=== PATIENT | female | born 1970 | race Caucasian/White ===

== ENCOUNTER 2017-09-21 10:01 | Emergency (ER) | payer MEDICAID ==
[2017-09-21] MEDS ORDERED: Ondansetron 4 MG/2 ML SDV IVPUSH ONE (10:18)
[2017-09-21] MEDS ORDERED: Sodium Chloride 0.9% 10 ML Syringe FLUSH PRN (10:18)
[2017-09-21] MEDS ORDERED: Sodium Chloride 0.9% 1,000 ML IV ONE (10:18)
[2017-09-21] MEDS ORDERED: Ketorolac 30 MG/ML SDV IVPUSH ONE (10:19)
[2017-09-21 11:22] LABS: CHLORIDE,CL 106 mmol/L (98-107); SODIUM,NA 138 mmol/L (136-145)
[2017-09-21] MEDS ORDERED: Morphine 4 MG/ML Syringe IVPUSH ONE (11:29)
[2017-09-21] MEDS ORDERED: Iopamidol 612 MG/ML 100 ML Bottle IVPUSH ONE (11:32)
--- NOTE | 2017-09-21 12:55 | EDM.PDOC ---
ED HPI GENERAL MEDICAL PROBLEM - General Chief Complaint: Gastrointestinal Problem Stated Complaint: ABDOMINAL PAIN/ELEVATD BLOOD PRESSURE Time Seen by Provider: 09/21/17 10:05 Source of Information: Reports: Patient, Provider History Limitations: Reports: No Limitations - History of Present Illness INITIAL COMMENTS - FREE TEXT/NARRATIVE: Pt. presents to ER with eigastric pain that radiates into L shoulder area. She states that the discomfort started at 5:30 this AM. She denies any fever or chills. No substernal chest pain or shortness of breath. Pt. denies any history of gallbladder disease or problems with epigastic pain in the past. She states that she has not eaten today. The last time she ate was last night when she had deep fried cheese curds. She denies any naveen colored stool or dark urine. Onset Date: 09/21/17 Onset Time: 05:30 Location: Reports: Abdomen Quality: Reports: Ache, Burning, Sharp, Stabbing, Throbbing Severity: Severe Middle Epigastric Pain Score (Numeric/FACES): 7 - Related Data Allergies Allergy/AdvReac Type Severity Reaction Status Date / Time No Known Allergies Allergy Verified 09/21/17 10:20 Home Meds: Home Meds Amitriptyline [Elavil] 50 mg PO BEDTIME 07/05/13 [History] QUEtiapine [SEROquel] 200 mg PO BEDTIME 07/05/13 [History] QUEtiapine [SEROquel] 600 mg PO DAILY 07/05/13 [History] buPROPion HCl [Wellbutrin Sr] 150 mg PO BID 07/05/13 [History] PARoxetine HCl [Paxil] 40 mg PO DAILY 12/12/15 [History] Albuterol Sulfate [Proair Hfa] 8.5 gm IH Q6H PRN 09/21/17 [History] Fluticasone Propionate [Flonase] 16 gm NS DAILY 09/21/17 [History] Norethindrone-E.estradiol-Iron [Junel Fe 1 MG-20 MCG] 1 each PO DAILY 09/21/17 [ History] Omeprazole Magnesium [Prilosec Otc] 20 mg PO DAILY 09/21/17 [History] Phentermine HCl [Adipex-P] 37.5 mg PO DAILY 09/21/17 [History] SUMAtriptan [Imitrex] 50 mg PO ASDIRECTED PRN 09/21/17 [History] Topiramate [Topamax] 100 mg PO BID 09/21/17 [History] risperiDONE [Risperdal] 2 mg PO ASDIRECTED 09/21/17 [History] traZODone HCl [Trazodone HCl] 50 - 100 mg PO BEDTIME 09/21/17 [History] Past Medical History HEENT History: Reports: Other (See Below) Other HEENT History: dental surgery Psychiatric History: Reports: Addiction, Anxiety, Bipolar, Depression, PTSD, Other (See Below) Other Psychiatric History: personality disorder, opioid abuse history - Past Surgical History HEENT Surgical History: Reports: Oral Surgery Social & Family History - Tobacco Use Smoking Status *Q: Current Every Day Smoker Years of Tobacco use: 20 Packs/Tins Daily: 0.5 ED ROS GENERAL - Review of Systems Review Of Systems: See Below Constitutional: Reports: No Symptoms HEENT: Reports: No Symptoms Respiratory: Reports: No Symptoms Cardiovascular: Reports: No Symptoms Endocrine: Reports: No Symptoms GI/Abdominal: Reports: Abdominal Pain (radiating into upper back) : Reports: No Symptoms Musculoskeletal: Reports: No Symptoms Skin: Reports: No Symptoms Neurological: Reports: No Symptoms Psychiatric: Reports: No Symptoms Hematologic/Lymphatic: Reports: No Symptoms Immunologic: Reports: No Symptoms ED EXAM, GENERAL - Physical Exam Exam: See Below Exam Limited By: No Limitations General Appearance: Alert, WD/WN, No Apparent Distress Eye Exam: Bilateral Eye: EOMI, Normal Fundi, Normal Inspection, PERRL Ears: Normal External Exam, Normal Canal, Hearing Grossly Normal, Normal TMs Ear Exam: Bilateral Ear: Auricle Normal, Canal Normal, TM normal Nose: Normal Inspection, Normal Mucosa, No Blood Throat/Mouth: Normal Inspection, Normal Lips, Normal Teeth, Normal Gums, Normal Oropharynx, Normal Voice, No Airway Compromise Head: Atraumatic, Normocephalic Neck: Normal Inspection, Supple, Non-Tender, Full Range of Motion Respiratory/Chest: No Respiratory Distress, Lungs Clear, Normal Breath Sounds, No Accessory Muscle Use, Chest Non-Tender Cardiovascular: Normal Peripheral Pulses, Regular Rate, Rhythm, No Edema, No Gallop, No JVD, No Murmur, No Rub GI/Abdominal: Soft, Guarding, Tender. No: Rebound, Hepatomegaly, Splenomegaly (Female) Exam: Deferred Rectal (Female) Exam: Deferred Back Exam: Normal Inspection, Full Range of Motion, Other (upper back pain) Extremities: Normal Inspection, Normal Range of Motion, Non-Tender, Normal Capillary Refill, No Pedal Edema Neurological: Alert, Oriented, CN II-XII Intact, Normal Cognition, Normal Gait, Normal Reflexes, No Motor/Sensory Deficits Psychiatric: Normal Affect, Normal Mood Skin Exam: Warm, Dry, Intact, Normal Color, No Rash Lymphatic: No Adenopathy Course - Vital Signs Last Recorded V/S: Last Vital Signs Temp 36.3 C 09/21/17 10:05 Pulse 90 09/21/17 10:05 Resp 20 09/21/17 10:05 BP 165/84 H 09/21/17 10:05 Pulse Ox 95 09/21/17 10:05 - Orders/Labs/Meds Orders: Active Orders 24 hr Category Date Time Status EKG Documentation Completion [RC] STAT Care 09/21/17 10:17 Active Chest Abdomen Pelvis w Cont [CT] Stat Exams 09/21/17 10:20 Taken HCG URINE, POC [POC] Stat Lab 09/21/17 11:06 Ordered UA W/MICROSCOPIC [URIN] Stat Lab 09/21/17 11:06 Ordered Sodium Chloride 0.9% [Saline Flush] Med 09/21/17 10:18 Active 10 ml FLUSH ASDIRECTED PRN Peripheral IV Insertion Adult [OM.PC] Routine Oth 09/21/17 10:18 Ordered Medication Orders Sodium Chloride (Saline Flush) 10 ml FLUSH ASDIRECTED PRN PRN Reason: Keep Vein Open Labs: Laboratory Tests 09/21/17 09/21/17 09/21/17 Range/Units 10:52 10:52 10:52 WBC 11.5 H (4.0-10.0) x10^3/uL RBC 3.68 L (4.00-5.50) x10^6/uL Hgb 12.5 (12.0-16.0) g/dL Hct 35.2 (33.0-47.0) % MCV 95.7 H D (78.0-93.0) fL MCH 34.0 H (26.0-32.0) pg MCHC 35.5 (32.0-36.0) g/dL RDW Coeff of Flori 13.2 (10.0-15.0) % Plt Count 116 L D (130-400) x10^3/uL Neut % (Auto) 73.5 (50.0-80.0) % Lymph % (Auto) 20.1 L (25.0-50.0) % [place] % (Auto) 3.9 (2.0-11.0) % Eos % (Auto) 2.3 (0.0-4.0) % Baso % (Auto) 0.2 (0.2-1.2) % PT 9.3 L (9.6-11.4) SEC INR 0.9 L (2.0-3.5) Sodium 138 (136-145) mmol/L Potassium 3.1 L (3.5-5.1) mmol/L Chloride 106 (98-107) mmol/L Carbon Dioxide 22 (21-32) mmol/L Anion Gap 13.1 (10-20) mmol/L BUN 7 (7-18) mg/dL Creatinine 0.7 (0.55-1.02) mg/dL Est Cr Clr Drug Dosing 95.58 mL/min Estimated GFR (MDRD) > 60 Glucose 95 (74-106) mg/dL Calcium 8.2 L (8.5-10.1) mg/dL Corrected Calcium 9.24 (8.5-10.1) mg/dL Total Bilirubin 0.3 (0.2-1.0) mg/dL AST 13 L (15-37) U/L ALT 13 L (14-59) U/L Alkaline Phosphatase 88 (46-116) U/L Troponin I < 0.017 (<=0.056) ng/mL C-Reactive Protein 3.9 H (<=0.9) mg/dL Total Protein 6.5 (6.4-8.2) g/dL Albumin 2.7 L (3.4-5.0) g/dL Globulin 3.8 Albumin/Globulin Ratio 0.71 Amylase (25-115) U/L Lipase (73-393) U/L Urine Color (YELLOW) Urine Appearance (CLEAR) Urine pH (5.0-8.0) Ur Specific [place] Urine Protein (NEGATIVE) mg/dL Urine Glucose (UA) (NEGATIVE) mg/dL Urine Ketones (NEGATIVE) mg/dL Urine Occult Blood (NEGATIVE) Urine Nitrite (NEGATIVE) Urine Bilirubin (NEGATIVE) Urine Urobilinogen (0.2) EU/dL Ur Leukocyte Esterase (NEGATIVE) Urine RBC (NOT SEEN) /HPF Urine WBC (NOT SEEN) /HPF Ur Squamous Epith Cells (NEGATIVE) /HPF Urine Bacteria (NEGATIVE) /HPF Urine Mucus (NEGATIVE) /LPF POC Urine HCG, Qual 09/21/17 09/21/17 09/21/17 Range/Units 10:52 11:06 11:06 WBC (4.0-10.0) x10^3/uL RBC (4.00-5.50) x10^6/uL Hgb (12.0-16.0) g/dL Hct (33.0-47.0) % MCV (78.0-93.0) fL MCH (26.0-32.0) pg MCHC (32.0-36.0) g/dL RDW Coeff of Flori (10.0-15.0) % Plt Count (130-400) x10^3/uL Neut % (Auto) (50.0-80.0) % Lymph % (Auto) (25.0-50.0) % [place] % (Auto) (2.0-11.0) % Eos % (Auto) (0.0-4.0) % Baso % (Auto) (0.2-1.2) % PT (9.6-11.4) SEC INR (2.0-3.5) Sodium (136-145) mmol/L Potassium (3.5-5.1) mmol/L Chloride (98-107) mmol/L Carbon Dioxide (21-32) mmol/L Anion Gap (10-20) mmol/L BUN (7-18) mg/dL Creatinine (0.55-1.02) mg/dL Est Cr Clr Drug Dosing mL/min Estimated GFR (MDRD) Glucose (74-106) mg/dL Calcium (8.5-10.1) mg/dL Corrected Calcium (8.5-10.1) mg/dL Total Bilirubin (0.2-1.0) mg/dL AST (15-37) U/L ALT (14-59) U/L Alkaline Phosphatase (46-116) U/L Troponin I (<=0.056) ng/mL C-Reactive Protein (<=0.9) mg/dL Total Protein (6.4-8.2) g/dL Albumin (3.4-5.0) g/dL Globulin Albumin/Globulin Ratio Amylase 90 (25-115) U/L Lipase 81 (73-393) U/L Urine Color Dark yellow H (YELLOW) Urine Appearance Slightly cloudy H (CLEAR) Urine pH 6.0 (5.0-8.0) Ur Specific [place] >=1.030 Urine Protein Negative (NEGATIVE) mg/dL Urine Glucose (UA) Negative (NEGATIVE) mg/dL Urine Ketones Negative (NEGATIVE) mg/dL Urine Occult Blood Trace-intact H (NEGATIVE) Urine Nitrite Negative (NEGATIVE) Urine Bilirubin Negative (NEGATIVE) Urine Urobilinogen 0.2 (0.2) EU/dL Ur Leukocyte Esterase Negative (NEGATIVE) Urine RBC 5-10 H (NOT SEEN) /HPF Urine WBC 5-10 H (NOT SEEN) /HPF Ur Squamous Epith Cells Moderate H (NEGATIVE) /HPF Urine Bacteria Few H (NEGATIVE) /HPF Urine Mucus Many H (NEGATIVE) /LPF POC Urine HCG, Qual Negative Meds: Medications Generic Name Dose Route Start Last Admin Trade Name Freq PRN Reason Stop Dose Admin Sodium Chloride 10 ml 09/21/17 10:18 Saline Flush FLUSH ASDIRECTED PRN Keep Vein Open Discontinued Medications Generic Name Dose Route Start Last Admin Trade Name Freq PRN Reason Stop Dose Admin Sodium Chloride 1,000 mls @ 1,000 mls/hr 09/21/17 10:18 09/21/17 11:00 Normal Saline IV 09/21/17 11:17 1,000 mls/hr .BOLUS ONE Administration Iopamidol 100 ml 09/21/17 11:32 09/21/17 11:58 Isovue-300 (61%) IVPUSH 09/21/17 11:33 100 ml ONETIME ONE Administration Ketorolac Tromethamine 30 mg 09/21/17 10:19 09/21/17 11:01 Toradol IVPUSH 09/21/17 10:20 30 mg ONETIME ONE Administration Morphine Sulfate 4 mg 09/21/17 11:29 09/21/17 11:55 Morphine IVPUSH 09/21/17 11:30 4 mg ONETIME ONE Administration Ondansetron HCl 4 mg 09/21/17 10:18 09/21/17 11:00 Zofran IVPUSH 09/21/17 10:19 4 mg ONETIME ONE Administration - Radiology Interpretation Free Text/Narrative:: CT chest abdomen and pelvis obtained and showed acute cholecystitis with no free fluid surrounding the gallbladder. Departure - Departure Time of Disposition: 13:01 Disposition: Home, Self-Care 01 Clinical Impression: Cholelithiasis without obstruction - Discharge Information Instructions: Gallbladder Eating Plan, Cholecystitis, [id number] Referrals: PCP,None [Primary Care Provider] - Forms: ED Department Discharge Additional Instructions: Ibuprofen 600mg every 6 hours. Zofran 4mg every 8 hours as needed for nausea. Follow the diet guidelines I gave you. John will let you know about your appointment with Dr. Garcia. - My Orders Last 24 Hours: My Active Orders 09/21/17 10:17 EKG Documentation Completion [RC] STAT 09/21/17 10:18 Sodium Chloride 0.9% [Saline Flush] 10 ml FLUSH ASDIRECTED PRN Peripheral IV Insertion Adult [OM.PC] Routine 09/21/17 10:20 Chest Abdomen Pelvis w Cont [CT] Stat 09/21/17 11:06 HCG URINE, POC [POC] Stat UA W/MICROSCOPIC [URIN] Stat - Assessment/Plan Last 24 Hours: My Active Orders 09/21/17 10:17 EKG Documentation Completion [RC] STAT 09/21/17 10:18 Sodium Chloride 0.9% [Saline Flush] 10 ml FLUSH ASDIRECTED PRN Peripheral IV Insertion Adult [OM.PC] Routine 09/21/17 10:20 Chest Abdomen Pelvis w Cont [CT] Stat 09/21/17 11:06 HCG URINE, POC [POC] Stat UA W/MICROSCOPIC [URIN] Stat
== END 2017-09-21 13:00 | disposition home or self-care (01) ==
LOC: VM.ED 10:01
DX: K80.20 Calculus of gallbladder without cholecystitis without obstruction (principal); F17.210 Nicotine dependence, cigarettes, uncomplicated; Z79.899 Other long term (current) drug therapy
CPT/HCPCS: 36415; 71260; 74177; 80053; 81001; 81025; 82150; 83690; 84484; 85025; 85610; 86140; 93005; 96361; 96374; 96375; 99284; J1885; J2270; J2405; J7030; Q9967

== ENCOUNTER 2018-07-29 23:30 | Emergency (ER) | payer MEDICAID ==
--- NOTE | 2018-07-29 23:48 | EDM.PDOCBH ---
ED HPI GENERAL MEDICAL PROBLEM - General Chief Complaint: Behavioral/Psych Stated Complaint: Manic episode Time Seen by Provider: 07/29/18 23:41 Source of Information: Reports: Patient, Old Records, RN, RN Notes Reviewed History Limitations: Reports: No Limitations - History of Present Illness INITIAL COMMENTS - FREE TEXT/NARRATIVE: Patient presents to the ED at [facility] stating she ran out of her psych meds and she feels like she is starting to have a manic episode. Patient has a long standing history of mental disorders. She takes a very large amount of Seroquel. She has not picked up her meds from the pharmacy for one week. She does not feel suicidal or homicidal. She is requesting an injection of thorazine. She states the Thorazine helps her when she feel manic. She has some anxiety just knowing she does not have her Seroquel. She does not feel depressed. Onset Date: 07/27/18 - Related Data Allergies Allergy/AdvReac Type Severity Reaction Status Date / Time No Known Allergies Allergy Verified 07/29/18 23:41 Home Meds: Home Meds Amitriptyline [Elavil] 50 mg PO BEDTIME 07/05/13 [History] QUEtiapine [SEROquel] 200 mg PO BEDTIME 07/05/13 [History] QUEtiapine [SEROquel] 600 mg PO DAILY 07/05/13 [History] buPROPion HCl [Wellbutrin Sr] 150 mg PO BID 07/05/13 [History] PARoxetine HCl [Paxil] 40 mg PO DAILY 12/12/15 [History] Albuterol Sulfate [Proair Hfa] 8.5 gm IH Q6H PRN 09/21/17 [History] Fluticasone Propionate [Flonase] 16 gm NS DAILY 09/21/17 [History] Norethindrone-E.estradiol-Iron [Junel Fe 1 MG-20 MCG] 1 each PO DAILY 09/21/17 [ History] Omeprazole Magnesium [Prilosec Otc] 20 mg PO DAILY 09/21/17 [History] Phentermine HCl [Adipex-P] 37.5 mg PO DAILY 09/21/17 [History] SUMAtriptan [Imitrex] 50 mg PO ASDIRECTED PRN 09/21/17 [History] Topiramate [Topamax] 100 mg PO BID 09/21/17 [History] risperiDONE [Risperdal] 2 mg PO ASDIRECTED 09/21/17 [History] traZODone HCl [Trazodone HCl] 50 - 100 mg PO BEDTIME 09/21/17 [History] Past Medical History HEENT History: Reports: Other (See Below) Other HEENT History: dental surgery Psychiatric History: Reports: Addiction, Anxiety, Bipolar, Depression, PTSD, Other (See Below) Other Psychiatric History: personality disorder, opioid abuse history - Past Surgical History HEENT Surgical History: Reports: Oral Surgery ED ROS GENERAL - Review of Systems Review Of Systems: See Below Constitutional: Denies: Fever, Chills Respiratory: Denies: Shortness of Breath, Cough Cardiovascular: Denies: Chest Pain, Palpitations GI/Abdominal: Denies: Abdominal Pain, Nausea, Vomiting Skin: Reports: No Symptoms Neurological: Reports: No Symptoms Psychiatric: Reports: Agitation, Cravings ED EXAM, BEHAVIORAL HEALTH - Physical Exam Exam: See Below Exam Limited By: No Limitations General Appearance: Alert, No Apparent Distress Respiratory/Chest: No Respiratory Distress, Lungs Clear, Normal Breath Sounds Cardiovascular: Normal Peripheral Pulses, Regular Rate, Rhythm GI/Abdominal: Normal Bowel Sounds, Soft, Non-Tender Neurological: Alert, Oriented x 3 Psychiatric: Restless, Agitated. No: Disoriented, Homicidal Thoughts, Suicidal Plan, Suicidal Thoughts Skin Exam: Warm, Dry, Intact, Normal color COURSE, BEHAVIORAL HEALTH COMP - Course Orders, Labs, Meds: Active Orders 24 hr Category Date Time Status chlorproMAZINE [Thorazine] Med 07/29/18 23:41 Once 50 mg IM ONETIME ONE Medication Orders Chlorpromazine HCl (Thorazine) 50 mg IM ONETIME ONE Stop: 07/29/18 23:42 Medications Generic Name Dose Route Start Last Admin Trade Name Freq PRN Reason Stop Dose Admin Chlorpromazine HCl 50 mg 07/29/18 23:41 Thorazine IM 07/29/18 23:42 ONETIME ONE Departure - Departure Time of Disposition: 23:49 Disposition: Home, Self-Care 01 Condition: Good Clinical Impression: Bipolar I disorder with francia - Discharge Information *PRESCRIPTION DRUG MONITORING PROGRAM REVIEWED*: Not Applicable *COPY OF PRESCRIPTION DRUG MONITORING REPORT IN PATIENT MARINA: Not Applicable Instructions: Francia Referrals: Stefani Reilly NP [Ordering Only Provider] - Forms: ED Department Discharge Additional Instructions: 1. Stay well hydrated and rest 2. See Stefani tomorrow or ERIKA in clinic 3. Call with any questions or concerns - Problem List Review Problem List Initiated/Reviewed/Updated: Yes - My Orders Last 24 Hours: My Active Orders 07/29/18 23:41 chlorproMAZINE [Thorazine] 50 mg IM ONETIME ONE - Assessment/Plan Last 24 Hours: My Active Orders 07/29/18 23:41 chlorproMAZINE [Thorazine] 50 mg IM ONETIME ONE Assessment:: Bipolar Plan: Patient given injection of Thorazine. After time for observation, patient stated she is "feeling much better." Discussed at length the needs to keep on her medications. Discussed the side effects and withdrawal symptoms. Patient verbalized understanding. She states she will see her PCP tomorrow. Patient discharged in stable condition.
== END 2018-07-29 23:59 | disposition home or self-care (01) ==
LOC: VM.ED 23:30
DX: F31.9 Bipolar disorder, unspecified (principal); Z79.899 Other long term (current) drug therapy
CPT/HCPCS: 96372; 99283; 99283-GF; J3230

== ENCOUNTER 2018-08-05 22:19 | Emergency (ER) | payer SELFPAY ==
[2018-08-05] MEDS ORDERED: diphenhydrAMINE 25 MG Cap PO ONE (23:18)
--- NOTE | 2018-08-05 23:26 | EDM.PDOCBH ---
ED HPI GENERAL MEDICAL PROBLEM - General Chief Complaint: Behavioral/Psych Stated Complaint: MANIC EPISODES Time Seen by Provider: 08/05/18 23:17 Source of Information: Reports: Patient History Limitations: Reports: No Limitations - History of Present Illness INITIAL COMMENTS - FREE TEXT/NARRATIVE: Patient reports feeling anxious. Has been off of her psychiatric medications as she is out and cant afford to refill them. Is still taking her seroquel. Is here asking for something to treat her anxiety. Was here last week with similar complaints and was given IM thorazine and is asking for the same. No suicidal ideations. Is also stating she is unable to sleep. No other complaints. Onset: Gradual Location: Reports: Generalized - Related Data Allergies Allergy/AdvReac Type Severity Reaction Status Date / Time No Known Allergies Allergy Verified 07/29/18 23:41 Home Meds: Home Meds Amitriptyline [Elavil] 50 mg PO BEDTIME 07/05/13 [History] QUEtiapine [SEROquel] 200 mg PO BEDTIME 07/05/13 [History] QUEtiapine [SEROquel] 600 mg PO DAILY 07/05/13 [History] buPROPion HCl [Wellbutrin Sr] 150 mg PO BID 07/05/13 [History] PARoxetine HCl [Paxil] 40 mg PO DAILY 12/12/15 [History] Albuterol Sulfate [Proair Hfa] 8.5 gm IH Q6H PRN 09/21/17 [History] Fluticasone Propionate [Flonase] 16 gm NS DAILY 09/21/17 [History] Norethindrone-E.estradiol-Iron [Junel Fe 1 MG-20 MCG] 1 each PO DAILY 09/21/17 [ History] Omeprazole Magnesium [Prilosec Otc] 20 mg PO DAILY 09/21/17 [History] Phentermine HCl [Adipex-P] 37.5 mg PO DAILY 09/21/17 [History] SUMAtriptan [Imitrex] 50 mg PO ASDIRECTED PRN 09/21/17 [History] Topiramate [Topamax] 100 mg PO BID 09/21/17 [History] risperiDONE [Risperdal] 2 mg PO ASDIRECTED 09/21/17 [History] traZODone HCl [Trazodone HCl] 50 - 100 mg PO BEDTIME 09/21/17 [History] Past Medical History HEENT History: Reports: Other (See Below) Other HEENT History: dental surgery Psychiatric History: Reports: Addiction, Anxiety, Bipolar, Depression, PTSD, Other (See Below) Other Psychiatric History: personality disorder, opioid abuse history - Past Surgical History HEENT Surgical History: Reports: Oral Surgery ED ROS GENERAL - Review of Systems Review Of Systems: See Below Constitutional: Reports: No Symptoms HEENT: Reports: No Symptoms Respiratory: Reports: No Symptoms Cardiovascular: Reports: No Symptoms Endocrine: Reports: No Symptoms GI/Abdominal: Reports: No Symptoms : Reports: No Symptoms Musculoskeletal: Reports: No Symptoms Skin: Reports: No Symptoms Neurological: Reports: No Symptoms Psychiatric: Reports: Agitation, Anxiety Hematologic/Lymphatic: Reports: No Symptoms Immunologic: Reports: No Symptoms ED EXAM, BEHAVIORAL HEALTH - Physical Exam Exam: See Below Exam Limited By: No Limitations General Appearance: Alert, WD/WN, Anxious, Mild Distress Eye Exam: Bilateral Eye: EOMI, Normal Inspection Ears: Normal TMs Nose: Normal Inspection, Normal Mucosa, No Blood Throat/Mouth: Normal Inspection, Normal Lips, Normal Teeth, Normal Gums, Normal Oropharynx, Normal Voice, No Airway Compromise Head: Atraumatic, Normocephalic Neck: Normal Inspection, Supple, Non-Tender, Full Range of Motion Respiratory/Chest: No Respiratory Distress, Lungs Clear, Normal Breath Sounds, No Accessory Muscle Use, Chest Non-Tender Cardiovascular: Normal Peripheral Pulses, Regular Rate, Rhythm, No Edema, No Gallop, No JVD, No Murmur, No Rub GI/Abdominal: Normal Bowel Sounds, Soft, Non-Tender, No Organomegaly, No Distention, No Abnormal Bruit, No Mass Neurological: Alert, Normal Mood/Affect, CN II-XII Intact, Normal Cognition, Normal Gait, Normal Reflexes, No Motor/Sensory Deficits, Oriented x 3 Psychiatric: Alert, Agitated Skin Exam: Warm, Dry, Intact, Normal color, No rash COURSE, BEHAVIORAL HEALTH COMP - Course Orders, Labs, Meds: Medications Discontinued Medications Generic Name Dose Route Start Last Admin Trade Name Freq PRN Reason Stop Dose Admin Chlorpromazine HCl 25 mg 08/05/18 23:17 Thorazine IM 08/05/18 23:18 ONETIME ONE Diphenhydramine HCl 25 mg 08/05/18 23:18 Benadryl PO 08/05/18 23:19 ONETIME ONE Departure - Departure Time of Disposition: 00:10 Disposition: Home, Self-Care 01 Condition: Good Clinical Impression: Anxiety, Schizophrenia - Discharge Information *PRESCRIPTION DRUG MONITORING PROGRAM REVIEWED*: Not Applicable *COPY OF PRESCRIPTION DRUG MONITORING REPORT IN PATIENT MARINA: Not Applicable Instructions: Panic Attack, [id number], Living With Anxiety Referrals: Stefani Reilly NP [Primary Care Provider] - Forms: ED Department Discharge Additional Instructions: Plan 1. Make an appointment tomorrow with your primary provider to have your psychiatric medications refilled and followed closely to avoid relapse. 2. If you have any suicidal thoughts please call either the hospital, police, suicide hotline or reach out to friends and family. 3. Please call the ER if you have any questions or concerns. - Problem List & Annotations (1) Anxiety SNOMED Code(s): 15255282 Code(s): F41.9 - ANXIETY DISORDER, UNSPECIFIED Status: Acute Priority: Medium Current Visit: Yes - Problem List Review Problem List Initiated/Reviewed/Updated: Yes - Assessment/Plan Assessment:: anxiety Plan: Plan 1. Make an appointment tomorrow with your primary provider to have your psychiatric medications refilled and followed closely to avoid relapse. 2. If you have any suicidal thoughts please call either the hospital, police, suicide hotline or reach out to friends and family. 3. Please call the ER if you have any questions or concerns.
== END 2018-08-06 00:10 | disposition home or self-care (01) ==
LOC: VM.ED 22:19
DX: F41.9 Anxiety disorder, unspecified (principal); F20.9 Schizophrenia, unspecified; F31.9 Bipolar disorder, unspecified; F43.10 Post-traumatic stress disorder, unspecified; Z79.899 Other long term (current) drug therapy
CPT/HCPCS: 96372; 99283; A9270; J3230; 99284-GF

== ENCOUNTER 2020-05-05 10:31 | Emergency (ER) | payer OTHER, MEDICAID ==
[2020-05-05] MEDS ORDERED: Sodium Chloride 0.9% 10 ML Syringe FLUSH PRN (10:48)
[2020-05-05] MEDS ORDERED: fentaNYL 50 MCG/ML SDV IVPUSH ONE ×3 (10:50→12:03)
[2020-05-05] MEDS ORDERED: Ondansetron 4 MG/2 ML SDV IVPUSH ONE (10:50)
[2020-05-05] MEDS ORDERED: Ondansetron 4 MG/2 ML SDV ONE (10:51)
[2020-05-05] MEDS ORDERED: fentaNYL 50 MCG/ML SDV ONE (10:52)
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
[2020-05-05] MEDS ORDERED: Lidocaine 1% 30 ML SDV INJECT ONE (11:21)
[2020-05-05] MEDS ORDERED: Bupivacaine 0.5% 30 ML SDV INJECT STA (11:21)
[2020-05-05 11:31] LABS: CHLORIDE,CL 103 mmol/L (98-107); SODIUM,NA 141 mmol/L (136-145)
[2020-05-05 11:36] LABS: ANION GAP 19.4 mmol/L (5-15); PTT,PARTIAL THROMBOPLSTIN TIME 24.3 SEC (25.6-32.8)
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
--- NOTE | 2020-05-05 11:55 | CT ---
[id number] CT/CT Cervical Spine WO IV Exam: CT Cervical Spine WO IV CLINICAL DATA: TRAUMA CODE, CERVICAL PAIN. COMPARISON: None. FINDINGS: No fracture or subluxation is seen. The C1-C2 articulation is unremarkable. The prevertebral soft tissues are within normal limits. Multilevel spondylosis most pronounced at C4-C5 and C5-C6. IMPRESSION: NO ACUTE FRACTURE OR SUBLUXATION. Gerardo Castellon DO 05/05/20 1154 Thank you for allowing us to participate in the care of your patient.
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
[2020-05-05] MEDS ORDERED: Diphtheria,Pertussis(Acell),Tetanus Vaccine 0.5 ML Syringe IM ONE (11:59)
[2020-05-05] MEDS ORDERED: Midazolam 1 MG/ML 2 ML SDV IVPUSH ONE (12:03)
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
--- NOTE | 2020-05-05 13:15 | CR ---
[id number] RAD/RAD Forearm Left 2V EXAM: RAD Forearm Left 2V CLINICAL DATA: POST REDUCTION COMPARISON: CORRELATION IS MADE WITH THE EARLIER EXAM FINDINGS: Residual medial and anterior displacement of the distal radial fracture fragment is still seen. IMPRESSION: RESIDUAL DISPLACEMENT OF FRACTURE FRAGMENT Emir Crisostomo MD 05/05/20 1842 Thank you for allowing us to participate in the care of your patient.
[2020-05-05 13:51] LABS: BARBITURATE SCREEN,URINE NEGATIVE (NEGATIVE); BENZODIAZEPINES SCREEN,URINE NEGATIVE (NEGATIVE); EDDP,URINE SCREEN NEGATIVE (NEGATIVE); METHAMPHETAMINE SCREEN, URINE NEGATIVE (NEGATIVE); TCA SCREEN,URINE POSITIVE (NEGATIVE); THC SCREEN,URINE 50 NG/ML POSITIVE (NEGATIVE)
== END 2020-05-05 13:45 | disposition home or self-care (01) ==
LOC: VM.ED 10:31
DX: S52.322A Displaced transverse fracture of shaft of left radius, initial encounter for closed fracture (principal); S40.012A Contusion of left shoulder, initial encounter; Z23 Encounter for immunization; V89.2XXA Person injured in unspecified motor-vehicle accident, traffic, initial encounter
CPT/HCPCS: 29105; 36415; 64450; 71045; 72125; 72170; 73030-LT; 73090-LT; 80053; 80305-QW; 80307; 81001; 81025; 83605; 83690; 84484; 85025; 85610; 85730; 86140; 90471; 90715; 96374; 96375; 96376; 99284; 99284-25; J2001; J2250; J2405; J3010; J3490

== ENCOUNTER 2023-05-14 09:16 | Inpatient (IN) | payer MEDICAID ==
[2023-05-14] MEDS ORDERED: Sodium Chloride 0.9% 10 ML Syringe FLUSH PRN (09:35)
[2023-05-14] MEDS ORDERED: Sodium Chloride 0.9% 1,000 ML IV ONE (09:36)
[2023-05-14] MEDS ORDERED: Ketorolac 15 MG/ML SDV IVPUSH ONE (09:37)
[2023-05-14 09:50] LABS: BASOPHILS PERCENT AUTO 0.1 % (0.2-1.2); EOSINOPHILS PERCENT AUTO 0.3 % (0.0-4.0); HEMATOCRIT 30.7 % (33.0-47.0); IMMATURE GRAN ABSOLUTE AUTO 0.04 x10^3/uL (0.00-0.07); LYMPHOCYTES ABSOLUTE AUTO 1.6 x10^3/uL (1.0-4.8); LYMPHOCYTES PERCENT AUTO 16.2 % (25.0-50.0); MEAN CORPUSCULAR HEMOGLOBIN 30.9 pg (26.0-32.0); MEAN CORPUSCULAR HGB CONC 35.8 g/dL (32.0-36.0); MEAN CORPUSCULAR VOLUME 86.2 fL (78.0-93.0); MONOCYTES ABSOLUTE AUTO 0.9 x10^3/uL (0.0-0.8); MONOCYTES PERCENT AUTO 9.5 % (2.0-11.0); NEUTROPHILS ABSOLUTE AUTO 7.3 x10^3/uL (1.8-7.7); NEUTROPHILS PERCENT AUTO 73.5 % (50.0-80.0); PLATELET COUNT,PLT 241 x10^3/uL (130-400); RED BLOOD CELL COUNT 3.56 x10^6/uL (4.00-5.50); WHITE BLOOD CELL COUNT,WBC 9.9 x10^3/uL (4.0-10.0)
[2023-05-14 09:56] LABS: HCO3 VENOUS,POC 26 mmol/L (22-29); O2 SATURATION VENOUS,POC 64 %; PCO2 VENOUS,POC 40 mmHg (41-51); PH VENOUS,POC 7.42 pH (7.32-7.43); PO2 VENOUS,POC 33 mmHg
[2023-05-14 10:13] LABS: LACTIC ACID 1.7 mmol/L (0.4-2.0)
[2023-05-14 10:15] LABS: A/G RATIO 0.41; ALANINE AMINOTRANSFERASE,ALT 24 U/L (14-59); ALBUMIN 2.2 g/dL (3.4-5.0); ALKALINE PHOSPHATASE 171 U/L (46-116); ASPARTATE AMNIOTRANSFERASE,AST 48 U/L (15-37); BILIRUBIN TOTAL 1.1 mg/dL (0.2-1.0); BLOOD UREA NITROGEN,BUN 14 mg/dL (7-18); CALCIUM 8.6 mg/dL (8.5-10.1); CARBON DIOXIDE,CO2 28 mmol/L (21-32); CHLORIDE,CL 97 mmol/L (98-107); GLUCOSE RANDOM 145 mg/dL (70-99); MAGNESIUM 1.7 mg/dL (1.8-2.4); PROTEIN TOTAL,TP 7.6 g/dL (6.4-8.2); SODIUM,NA 136 mmol/L (136-145)
[2023-05-14 10:16] LABS: ANION GAP 13.8 mmol/L (5-15); ESTIMATED GFR 67 mL/min (>=60); POTASSIUM,K 2.8 mmol/L (3.5-5.1)
[2023-05-14 10:22] LABS: PROTHROMBIN TIME 10.6 SEC (9.5-12.2)
[2023-05-14 10:28] LABS: CORONAVIRUS COVID-19 NAA NEGATIVE (NEGATIVE); INFLUENZA A NAA NEGATIVE (NEGATIVE); INFLUENZA B NAA NEGATIVE (NEGATIVE); RESPIRATORY SYNCYTIAL VIR NAA NEGATIVE (NEGATIVE)
[2023-05-14 10:29] LABS: C-REACTIVE PROTEIN 58.66 mg/dL (<=0.50)
[2023-05-14] MEDS ORDERED: Potassium Chloride Riders 20 MEQ in Premix Bag 1 BAG IV ONE ×3 (10:44→14:30)
[2023-05-14] MEDS ORDERED: Iopamidol 755 Mg/ML 100 ML Bottle IVPUSH ONE (10:55)
[2023-05-14 11:12] LABS: AMPHETAMINES SCREEN, URINE NEGATIVE (NEGATIVE); BARBITURATE SCREEN,URINE NEGATIVE (NEGATIVE); BENZODIAZEPINES SCREEN,URINE NEGATIVE (NEGATIVE); BUPRENORPHINE SCREEN,URINE POSITIVE (NEGATIVE); COCAINE METABOLITES,URINE NEGATIVE (NEGATIVE); METHADONE SCREEN, URINE NEGATIVE (NEGATIVE); METHAMPHETAMINE SCREEN, URINE NEGATIVE (NEGATIVE); OXYCODONE SCREEN,URINE NEGATIVE (NEGATIVE); PCP SCREEN,URINE NEGATIVE (NEGATIVE); THC SCREEN,URINE 50 NG/ML POSITIVE (NEGATIVE)
[2023-05-14 11:17] LABS: BILIRUBIN,URINE MODERATE (NEGATIVE); COLOR,URINE DARK YELLOW (YELLOW); GLUCOSE,URINE NEGATIVE (NEGATIVE); KETONES,URINE NEGATIVE (NEGATIVE); LEUKOCYTE ESTERASE,URINE NEGATIVE (NEGATIVE); NITRITE,URINE NEGATIVE (NEGATIVE); OCCULT BLOOD,URINE MODERATE (NEGATIVE); PROTEIN,URINE 100 mg/dL (NEGATIVE); UROBILINOGEN,URINE >=8.0 EU/dL (0.2)
[2023-05-14 11:18] LABS: APPEARANCE,URINE SLIGHTLY CLOUDY (CLEAR)
[2023-05-14 11:19] LABS: SQUAMOUS EPITHELIAL CELLS,UR FEW /HPF (NOT SEEN); WBC,URINE 0-5 /HPF (NOT SEEN)
[2023-05-14 11:20] LABS: AMORPHOUS SEDIMENT,URINE OCCASIONAL; BACTERIA,URINE RARE /HPF (NOT SEEN); MUCUS,URINE RARE /LPF (NOT SEEN)
[2023-05-14] MEDS ORDERED: cefTRIAXone 2 GM Vial IVPUSH ONE (11:56)
[2023-05-14] MEDS: methylPREDNISolone Sodium Succinate 125 MG/2 ML SDV IV SCH ×2 (12:15→20:57)
[2023-05-14] MEDS ORDERED: Ondansetron 4 MG Tab.DIS PO PRN (12:29)
[2023-05-14] MEDS ORDERED: HYDROmorphone 0.5 MG/0.5 ML Syringe IVPUSH ONE (13:09)
[2023-05-14] MEDS ORDERED: Ketorolac 15 MG/ML SDV IVPUSH SCH (13:15)
[2023-05-14] MEDS: NS + KCl 20mEq/L 1,000 ML IV SCH ×2 (13:19→21:18)
[2023-05-14] MEDS: Albuterol/Ipratropium 3.0-0.5 MG/3 ML Neb Soln NEB SCH ×2 (13:19→18:14)
[2023-05-14] MEDS: Doxycycline Monohydrate 100 MG Cap PO SCH ×2 (13:23→20:57)
[2023-05-14] MEDS ORDERED: hydrOXYzine HCl 25 MG Tab PO PRN (13:36)
[2023-05-14] MEDS ORDERED: Ketorolac 15 MG/ML SDV IVPUSH PRN (13:39)
[2023-05-14] MEDS: BUPRENORPHINE NALOX SL SCH ×2 (14:41→21:00)
[2023-05-14] MEDS: Enoxaparin 40 MG/0.4 ML Syringe SUBCUT SCH (20:57)
[2023-05-14] MEDS: Zolpidem 5 MG Tab PO SCH (20:58)
[2023-05-14] MEDS: QUEtiapine 100 MG Tab PO SCH (20:58)
[2023-05-14] MEDS: ClonazePAM 0.5 MG Tab PO SCH (20:59)
[2023-05-15] MEDS: Albuterol/Ipratropium 3.0-0.5 MG/3 ML Neb Soln NEB SCH ×5 (02:00→18:36)
[2023-05-15] MEDS: NS + KCl 20mEq/L 1,000 ML IV SCH ×3 (05:19→22:28)
[2023-05-15] MEDS: Omeprazole 20 MG Cap.CR PO SCH (06:20)
[2023-05-15 06:47] LABS: HEMATOCRIT 27.2 % (33.0-47.0); HEMOGLOBIN 9.5 g/dL (12.0-16.0); MEAN CORPUSCULAR HEMOGLOBIN 30.5 pg (26.0-32.0); MEAN CORPUSCULAR HGB CONC 34.9 g/dL (32.0-36.0); MEAN CORPUSCULAR VOLUME 87.5 fL (78.0-93.0); RED BLOOD CELL COUNT 3.11 x10^6/uL (4.00-5.50); WHITE BLOOD CELL COUNT,WBC 11.4 x10^3/uL (4.0-10.0)
[2023-05-15] MEDS: methylPREDNISolone Sodium Succinate 125 MG/2 ML SDV IV SCH ×2 (08:07→20:22)
[2023-05-15] MEDS: Propranolol 60 MG Cap.ER PO SCH (08:07)
[2023-05-15] MEDS: ClonazePAM 0.5 MG Tab PO SCH ×2 (08:07→20:23)
[2023-05-15] MEDS: cefTRIAXone 1 GM Vial IVPUSH SCH (08:07)
[2023-05-15] MEDS: lamoTRIgine 100 MG Tab PO SCH (08:08)
[2023-05-15] MEDS: Meloxicam 7.5 MG Tab PO SCH (08:08)
[2023-05-15] MEDS: Doxycycline Monohydrate 100 MG Cap PO SCH ×2 (08:08→20:23)
[2023-05-15] MEDS: PARoxetine 20 MG Tab PO SCH (08:08)
[2023-05-15] MEDS: BUPRENORPHINE NALOX SL SCH ×3 (08:09→20:20)
[2023-05-15 08:53] LABS: CALCIUM 8.5 mg/dL (8.5-10.1); EST CRCL DRUG DOSING (CG) 82.04 mL/min; POTASSIUM,K 3.6 mmol/L (3.5-5.1)
[2023-05-15 09:02] LABS: ANION GAP 14.6 mmol/L (5-15); CREATININE 0.8 mg/dL (0.55-1.02)
[2023-05-15] MEDS: FLUOROMETHOLONE 0.1% EYEBOTH SCH (20:21)
[2023-05-15] MEDS: EYE EYEBOTH SCH (20:21)
[2023-05-15] MEDS: Enoxaparin 40 MG/0.4 ML Syringe SUBCUT SCH (20:22)
[2023-05-15] MEDS: QUEtiapine 100 MG Tab PO SCH (20:22)
[2023-05-15] MEDS: Zolpidem 5 MG Tab PO SCH (20:23)
[2023-05-16] MEDS: Albuterol/Ipratropium 3.0-0.5 MG/3 ML Neb Soln NEB SCH ×5 (02:05→21:38)
[2023-05-16] MEDS: NS + KCl 20mEq/L 1,000 ML IV SCH ×2 (06:19→17:21)
[2023-05-16] MEDS: Omeprazole 20 MG Cap.CR PO SCH (06:31)
[2023-05-16 07:25] LABS: A/G RATIO 0.38; ALBUMIN 1.8 g/dL (3.4-5.0); ANION GAP 16.5 mmol/L (5-15); BILIRUBIN TOTAL 0.2 mg/dL (0.2-1.0); CALCIUM 8.8 mg/dL (8.5-10.1); CREATININE 0.7 mg/dL (0.55-1.02); EST CRCL DRUG DOSING (CG) 93.76 mL/min; MAGNESIUM 1.7 mg/dL (1.8-2.4); POTASSIUM,K 4.5 mmol/L (3.5-5.1); PROTEIN TOTAL,TP 6.5 g/dL (6.4-8.2)
[2023-05-16] MEDS: lamoTRIgine 100 MG Tab PO SCH (08:40)
[2023-05-16] MEDS: Doxycycline Monohydrate 100 MG Cap PO SCH ×2 (08:40→20:21)
[2023-05-16] MEDS: Meloxicam 7.5 MG Tab PO SCH (08:40)
[2023-05-16] MEDS: ClonazePAM 0.5 MG Tab PO SCH ×2 (08:40→20:20)
[2023-05-16] MEDS: Propranolol 60 MG Cap.ER PO SCH (08:40)
[2023-05-16] MEDS: PARoxetine 20 MG Tab PO SCH (08:41)
[2023-05-16] MEDS: BUPRENORPHINE NALOX SL SCH ×3 (08:43→20:22)
[2023-05-16] MEDS: methylPREDNISolone Sodium Succinate 125 MG/2 ML SDV IV SCH ×2 (08:45→20:12)
[2023-05-16] MEDS: cefTRIAXone 1 GM Vial IVPUSH SCH (08:51)
[2023-05-16] MEDS: EYE EYEBOTH SCH ×3 (08:52→20:22)
[2023-05-16] MEDS: FLUOROMETHOLONE 0.1% EYEBOTH SCH ×3 (08:52→20:22)
[2023-05-16] MEDS: QUEtiapine 100 MG Tab PO SCH (20:19)
[2023-05-16] MEDS: Enoxaparin 40 MG/0.4 ML Syringe SUBCUT SCH (20:21)
[2023-05-16] MEDS ORDERED: Furosemide 40 MG/4 ML VIAL ONE (21:43)
[2023-05-16] MEDS ORDERED: LORazepam 2 MG/ML SDV ONE (21:46)
[2023-05-16] MEDS ORDERED: Nitroglycerin/D5W 25 MG/250 ML BOTTLE ONE (22:00)
[2023-05-16] MEDS ORDERED: Nitroglycerin 0.4 MG Tab.SL ONE (22:00)
[2023-05-16] MEDS ORDERED: Sodium Chloride 0.9% 10 ML Syringe FLUSH PRN (22:02)
[2023-05-16] MEDS ORDERED: Nitroglycerin 0.4 MG Tab.SL SL ONE (22:04)
[2023-05-16] MEDS ORDERED: Piperacillin/Tazobactam 4.5 GM in Sodium Chloride 0.9% 100 ML IV ONE (22:04)
[2023-05-16 22:12] LABS: HEMATOCRIT 34.3 % (33.0-47.0); HEMOGLOBIN 11.9 g/dL (12.0-16.0); MEAN CORPUSCULAR HEMOGLOBIN 30.4 pg (26.0-32.0); MEAN CORPUSCULAR HGB CONC 34.7 g/dL (32.0-36.0); MEAN CORPUSCULAR VOLUME 87.5 fL (78.0-93.0); PLATELET COUNT,PLT 464 x10^3/uL (130-400); RED BLOOD CELL COUNT 3.92 x10^6/uL (4.00-5.50)
[2023-05-16 22:13] LABS: WHITE BLOOD CELL COUNT,WBC 28.1 x10^3/uL (4.0-10.0)
[2023-05-16] MEDS ORDERED: Nitroglycerin/D5W 25 MG/250 ML BOTTLE IV SCH (22:15)
[2023-05-16 22:19] LABS: BAND PERCENT MAN 6 % (0-6); HYPERSEGMENTED NEUTROPHILS FEW; HYPOCHROMASIA 1+ SLIGHT; LYMPHOCYTES ABSOLUTE MAN 2.2 x10^3/uL (1.0-4.8); LYMPHOCYTES PERCENT MAN 8 % (25-50); METAMYELOCYTE PERCENT MAN 2 % (0); MONOCYTES ABSOLUTE MAN 0.8 x10^3/uL (0.0-0.8); MONOCYTES PERCENT MAN 3 % (2-11); NEUTROPHILS ABSOLUTE MAN 24.4 x10^3/uL (1.8-7.7); PLATELET COUNT ESTIMATE INCREASED; SEG NEUTROPHILS PERCENT MAN 81 % (50-80)
[2023-05-16 22:32] LABS: A/G RATIO 0.41; ALBUMIN 2.1 g/dL (3.4-5.0); BILIRUBIN TOTAL 0.4 mg/dL (0.2-1.0); C-REACTIVE PROTEIN 7.57 mg/dL (<=0.50); CREATININE 0.9 mg/dL (0.55-1.02); EST CRCL DRUG DOSING (CG) 72.92 mL/min; MAGNESIUM 1.5 mg/dL (1.8-2.4); POTASSIUM,K 4.2 mmol/L (3.5-5.1); PROTEIN TOTAL,TP 7.2 g/dL (6.4-8.2)
[2023-05-16 22:34] LABS: LACTIC ACID 2.5 mmol/L (0.4-2.0)
[2023-05-16 22:35] LABS: BASE EXCESS ARTERIAL,POC -4 mmol/L ((-2)-3); HCO3 ARTERIAL,POC 21.8 mmol/L (21-28); O2 SATURATION ARTERIAL,POC 98.8 % (94-98); PCO2 ARTERIAL,POC 40 mmHg (35-48); PH ARTERIAL,POC 7.34 pH (7.35-7.45); PO2 ARTERIAL,POC 131 mmHg (83-108); TCO2 ARTERIAL,POC 21.5 mmol/L (22-29)
[2023-05-16 22:38] LABS: CALCIUM 8.9 mg/dL (8.5-10.1)
[2023-05-16 22:39] LABS: ANION GAP 20.2 mmol/L (5-15)
[2023-05-16] MEDS ORDERED: VANCOmycin 1.75 GM/350 ML 1.75 GM in Premix Bag 1 BAG IV ONE (23:00)
== END 2023-05-16 23:45 | disposition short-term general hospital (02) | DRG 193 ==
LOC: VM.ED 09:16 → VM.MS 12:11
PROVIDERS: ADMIT Physician Assistant; ATTEND Physician Assistant
PROC: 4A033R1 Measurement of Arterial Saturation, Peripheral, Percutaneous Approach (ICD-10-PCS; principal; 2023-05-14)
DX: J18.9 Pneumonia, unspecified organism (principal); J81.0 Acute pulmonary edema; F31.9 Bipolar disorder, unspecified; F17.210 Nicotine dependence, cigarettes, uncomplicated; E87.6 Hypokalemia; E86.0 Dehydration; S09.90XA Unspecified injury of head, initial encounter; R41.0 Disorientation, unspecified; Z79.899 Other long term (current) drug therapy; Z79.51 Long term (current) use of inhaled steroids; Z98.890 Other specified postprocedural states; Z11.52 Encounter for screening for COVID-19; Z79.01 Long term (current) use of anticoagulants; W19.XXXA Unspecified fall, initial encounter
CPT/HCPCS: 0241U; 36415; 36600; 51702; 70450; 71045; 71275; 80048; 80053; 80305-QW; 81001; 81025; 82803; 83605; 83735; 83880; 84484; 85025; 85027; 85379; 85610; 86140; 87040; 93005; 94640; 94660; 94668; 94760; 96361; 96365; 96375; 97161-GP; 97165-GO; 97530-GO; 99285-25; A9270-GY; J0696; J1170; J1650; J1885; J1940; J2060; J2543; J2930; J3370; J3480; J3490; J7030; J7620-GY; Q9967